=== PATIENT | female | born 1940 | race Caucasian/White ===

== ENCOUNTER 2017-01-06 23:34 | Emergency (ER) | payer MEDICARE, OTHER ==
[2017-01-06 23:47] VITALS: BP 171/76
[2017-01-07] MEDS ORDERED: Acetaminophen 325 MG Tab PO ONE (00:20)
--- NOTE | 2017-01-07 00:20 | EDM.PDOC ---
ED HPI GENERAL MEDICAL PROBLEM - General Chief Complaint: General Stated Complaint: chills , cough Time Seen by Provider: 01/07/17 00:10 Source of Information: Reports: Patient History Limitations: Reports: No limitations - History of Present Illness INITIAL COMMENTS - FREE TEXT/NARRATIVE: PT STATES SHE WAS SEEN AT [facility] ON SUNDAY FOR COUGH / URI. GIVEN AMOXIL AND COUGH SYRUP. SYMPTOMS BECAME WORSE AND DEVELOPED FEVER. DENIES CP, SOB, N/V/D, OR OTHER FAMILY MEMBERS WITH SAME SYMPTOMS Onset: gradual Onset Date: 01/01/17 Duration: Day(s): Location: Reports: chest Severity: mild Improves with: Reports: None Worsens with: Reports: None Associated Symptoms: Reports: cough. Denies: nausea/vomiting Treatments MERCURY CRACKING TESTER: Reports: Acetaminophen, NSAIDS - Related Data Allergies Allergy/AdvReac Type Severity Reaction Status Date / Time No Known Allergies Allergy Verified 01/06/17 23:40 Home Meds: Home Meds Amoxicillin [Amoxicillin] 500 mg PO TID 01/06/17 [History] Amylase/Lipase/Protease [Creon DR 24,000 Unit] 1 cap PO TID 01/06/17 [History] Aspirin [Halfprin] 81 mg PO BRK 01/06/17 [History] Calcium Carbonate/Vitamin D3 [Calcium 1,000 + D3 Caplet] 2 tab PO DAILY [History] Codeine/Promethazine [Phenergan with Codeine] 5 ml PO TID 01/06/17 [History] Escitalopram [Lexapro] 10 mg PO DAILY 01/06/17 [History] L.acidoph,Paracasei, B.lactis [Probiotic] 1 each PO DAILY 01/06/17 [History] Metoprolol Succinate [Toprol XL] 25 mg PO DAILY 01/06/17 [History] Multivit-Min/FA/Lycopene/Lut [Centrum Silver Tablet] 1 each PO DAILY 01/06/17 [ History] [place]-3 Fatty Acids [Fish Oil] 300 mg PO DAILY 01/06/17 [History] Vit D 3 2,000 units PO DAILY 01/06/17 [History] atorvaSTATin [Lipitor] 5 mg PO BEDTIME 01/06/17 [History] ED ROS GENERAL - Review of Systems Review Of Systems: ROS reveals no pertinent complaints other than HPI. Constitutional: Reports: no symptoms HEENT: Reports: No symptoms Respiratory: Reports: Cough, Sputum Cardiovascular: Reports: No symptoms Endocrine: Reports: no symptoms GI/Abdominal: Reports: No symptoms : Reports: no symptoms Musculoskeletal: Reports: no symptoms Skin: Reports: no symptoms Neurological: Reports: No Symptoms Psychiatric: Reports: No symptoms Hematologic/Lymphatic: Reports: no symptoms Immunologic: Reports: no symptoms ED EXAM, GENERAL - Physical Exam Exam: See Below Exam Limited By: No limitations General Appearance: alert, WD/WN, no apparent distress Nose: normal inspection, normal mucosa, no blood Throat/Mouth: Normal inspection, Normal oropharynx, No airway compromise Head: atraumatic, normocephalic Neck: normal inspection Respiratory/Chest: no respiratory distress, rhonchi, wheezing Cardiovascular: regular rate, rhythm, no murmur GI/Abdominal: normal bowel sounds, soft, non tender Extremities: normal inspection, no pedal edema Neurological: alert, oriented, normal cognition Psychiatric: normal affect, normal mood Skin Exam: Warm, Dry, Intact, Normal color, No rash Lymphatic: no adenopathy Course - Vital Signs Last Recorded V/S: Last Vital Signs Temp 103 F H 01/06/17 23:44 Pulse 68 01/06/17 23:44 Resp 24 H 01/06/17 23:44 BP 171/76 H 01/06/17 23:44 Pulse Ox 94 L 01/06/17 23:44 - Orders/Labs/Meds Orders: Active Orders 24 hr Category Date Time Status Chest 2V [CR] Stat Exams 01/06/17 23:53 Ordered CBC WITH AUTO DIFF [HEME] Stat Lab 01/06/17 00:02 Received CMP [COMPREHENSIVE METABOLIC PN,CMP] [CHEM] Stat Lab 01/06/17 00:02 Received - Radiology Interpretation Free Text/Narrative:: CXR SHOWS BILAT LOWER LOBE PNEUMONIA - Re-Assessments/Exams Free Text/Narrative Re-Assessment/Exam: 01/07/17 00:56 PT AFEBRILE, NONTOXIC APPEARING, VSS, BBS IMPROVED AFTER NEB. ROCEPHIN AND ZITHRO GIVEN. Departure - Departure Time of Disposition: 00:57 Disposition: Home, Self-Care 01 Condition: good Clinical Impression: Pneumonia Instructions: Community-Acquired Pneumonia, Adult, [id number], Fever, Adult Forms: ED Department Discharge Additional Instructions: FOLLOW UP AT [facility] IN NEXT 2-3 DAYS. RETURN TO ER SOONER IF SYMPTOMS CONTINUE - My Orders Last 24 Hours: My Active Orders 01/06/17 00:02 CBC WITH AUTO DIFF [HEME] Stat CMP [COMPREHENSIVE METABOLIC PN,CMP] [CHEM] Stat 01/06/17 23:53 Chest 2V [CR] Stat - Assessment/Plan Last 24 Hours: My Active Orders 01/06/17 00:02 CBC WITH AUTO DIFF [HEME] Stat CMP [COMPREHENSIVE METABOLIC PN,CMP] [CHEM] Stat 01/06/17 23:53 Chest 2V [CR] Stat Assessment:: PNEUMONIA Plan: F/U AT CLINIC IN 2 DAYS
[2017-01-07] MEDS ORDERED: Albuterol/Ipratropium 3.0-0.5 MG/3 ML Neb Soln NEB ONE (00:21)
[2017-01-07 00:31] LABS: CHLORIDE,CL 99 mmol/L (98-115); SODIUM,NA 136 mmol/L (136-145)
[2017-01-07] MEDS ORDERED: Azithromycin 250 MG Tab PO ONE ×2 (00:38→00:54)
[2017-01-07] MEDS ORDERED: cefTRIAXone 1 GM Vial IM ONE (00:38)
[2017-01-07] MEDS ORDERED: Albuterol 8 GM Inhaler INH ONE (00:54)
== END 2017-01-07 01:35 | disposition home or self-care (01) ==
LOC: KA.ED 23:34
DX: J18.9 Pneumonia, unspecified organism (principal); Z79.899 Other long term (current) drug therapy
CPT/HCPCS: 36415; 71020; 80053; 85025; 94640; 96372; 99284; A9270; J0696

== ENCOUNTER 2018-02-13 08:56 | Day surgery (SDC) | payer MEDICARE, OTHER ==
[~2018-02-13 08:56] MED LIST: Lactated Ringers 1,000 ML IV SCH; Lidocaine 0.5% 50 ML SDV ONE; Midazolam 1 MG/ML 2 ML SDV ONE; Propofol 200 MG/20 ML SDV ONE; Sodium Chloride 0.9% 5 ML Syringe FLUSH PRN; ceFAZolin 1 GM Vial ONE; fentaNYL 100 MCG/2 ML SDV ONE
[2018-02-13] MEDS ORDERED: Bupivacaine 0.5% 30 ML SDV ONE (09:38)
[2018-02-13] MEDS ORDERED: Lidocaine 1% 20 ML MDV ONE (10:06)
[2018-02-13] MEDS ORDERED: Midazolam 1 MG/ML 2 ML SDV IV ONE (10:30)
[2018-02-13] MEDS ORDERED: Propofol 200 MG/20 ML SDV IV ONE (10:30)
[2018-02-13] MEDS ORDERED: ceFAZolin 1 GM Vial IV ONE (10:30)
[2018-02-13] MEDS ORDERED: fentaNYL 100 MCG/2 ML SDV IV ONE (10:30)
[2018-02-13] MEDS ORDERED: Lidocaine 1% 10 ML MDV INFILT ONE (11:06)
--- NOTE | 2018-02-13 11:28 | PCM.OPNOTE ---
- General Post-Op/Procedure Note Date of Surgery/Procedure: 02/13/18 Operative Procedure(s): Left middle finger trigger finger release. Findings: Moderate severe trigger finger involving the left middle finger. Pre Op Diagnosis: Trigger finger left middle finger. Post-Op Diagnosis: As above. Anesthesia Technique: Regional Block Primary Surgeon: Rosa Antoine Condition: Good Free Text/Narrative:: Preoperative diagnosis: Trigger finger left middle finger Postoperative diagnosis: As above Procedure performed: Release of trigger finger left middle finger Informed consent was obtained from the patient regarding this procedure. All possible complications were thoroughly discussed. The patient decided to proceed. Anesthesia was Rein block. This was explained by the mason liner. The patient was taken to the operating room and kept in the supine position. The left upper stomach a was exsanguinated and a tourniquet was applied at the upper arm. The [place] block anesthetic was administered by the mason liner. The left hand was completely draped in the usual fashion. A horizontal incision was made on the ventral aspect of the left hand opposite the A1 guadalupe. Subcutaneous dissection was performed in the midline until we came down upon the tendon sheath which was incised proximally and distally. We then exercised the finger through full range of motion and I was unable to reproduce the "locking". The wound was irrigated and closed with 4-0 nylon sutures. A sterile pressure dressing was applied. The patient tolerated the procedure well. There were no operative complications. There was no bleeding. She was sent to the recovery room in an excellent condition. Follow-up in the clinic in 10 days.
[2018-02-13] MEDS ORDERED: Ketorolac 30 MG/ML SDV IVPUSH PRN (12:49)
[2018-02-13] MEDS ORDERED: Pantoprazole 40 MG Vial IVPUSH ONE (12:50)
[2018-02-13 13:14] VITALS: BP 132/64
== END 2018-02-13 13:05 | disposition home or self-care (01) ==
LOC: KA.SDS 08:56
PROVIDERS: ATTEND Family Medicine
DX: M65.332 Trigger finger, left middle finger (principal); I10 Essential (primary) hypertension; E78.00 Pure hypercholesterolemia, unspecified; K21.0 Gastro-esophageal reflux disease with esophagitis; F32.9 Major depressive disorder, single episode, unspecified; Z79.899 Other long term (current) drug therapy; Z88.1 Allergy status to other antibiotic agents
CPT/HCPCS: A9270-GY; J0690; J2250; J2704; J3010; J7120

== ENCOUNTER 2020-11-05 18:52 | Emergency (ER) | payer MEDICARE, OTHER ==
[2020-11-05] MEDS: Sodium Chloride 0.9% 500 ML IV STA (19:29)
[2020-11-05] MEDS: Ondansetron 4 MG/2 ML SDV IVPUSH ONE (19:30)
[2020-11-05 20:03] VITALS: BP 98/59; PULSE 70
[2020-11-05 20:04] LABS: ANION GAP 13.7 mmol/L (5-15)
--- NOTE | 2020-11-05 20:20 | EDM.PDOC ---
ED HPI GENERAL MEDICAL PROBLEM - General Chief Complaint: General Stated Complaint: sick--after COVID vaccine Time Seen by Provider: 11/05/20 19:10 Source of Information: Reports: Patient, Family () History Limitations: Reports: No Limitations - History of Present Illness INITIAL COMMENTS - FREE TEXT/NARRATIVE: 80-year-old female presents emergency room with complaints of myalgias and chills over the last 24 hours. Patient was administered her second Covid vaccination yesterday. Her symptoms started yesterday evening and continued today. She has been experiencing some nausea. She denies any vomiting. She denies any abdominal pain. She states she is not been drinking much for fluids during the last 24 hours. Onset: Sudden Onset Date: 11/04/20 Duration: Hour(s):, Constant Location: Reports: Generalized Quality: Reports: Ache Severity: Moderate Improves with: Reports: None Worsens with: Reports: None Context: Reports: Other (Covid vaccination second injection yesterday) Treatments SQL ARCHITECT: Reports: Acetaminophen, Heat Therapy - Related Data Allergies Allergy/AdvReac Type Severity Reaction Status Date / Time azithromycin [From Zithromax] Allergy Rash Verified 11/05/20 19:03 Home Meds: Home Meds Amylase/Lipase/Protease [Creon DR 24,000 Unit] 1 cap PO TID 01/06/17 [History] Calcium Carbonate/Vitamin D3 [Calcium 1,000 + D3 Caplet] 2 tab PO DAILY 01/06/17 [History] Escitalopram [Lexapro] 10 mg PO DAILY 01/06/17 [History] L.acidoph,Paracasei, B.lactis [Probiotic] 1 each PO DAILY 01/06/17 [History] Metoprolol Succinate [Toprol XL] 25 mg PO DAILY 01/06/17 [History] Multivit-Min/FA/Lycopen/Lutein [Centrum Silver Tablet] 3 tab PO DAILY 01/06/17 [History] [place]-3 Fatty Acids [Fish Oil] 1 cap PO TID 01/06/17 [History] Vit D 3 2,000 units PO DAILY 01/06/17 [History] Famotidine 20 mg PO DAILY 11/05/20 [History] methIMAzole [Methimazole] 5 mg PO DAILY 11/05/20 [History] Past Medical History Cardiovascular History: Reports: High Cholesterol, Hypertension Respiratory History: Reports: Bronchitis, Recurrent, Pneumonia, Recurrent Gastrointestinal History: Reports: GERD Genitourinary History: Reports: UTI, Recurrent CURATOR OF EDUCATION History: Reports: Other Musculoskeletal History: Trigger finger of left middle finger Neurological History: Reports: Vertigo Psychiatric History: Reports: Depression Endocrine/Metabolic History: Reports: None Hematologic History: Reports: Blood Transfusion(s) Oncologic (Cancer) History: Reports: None Dermatologic History: Reports: None - Infectious Disease History Infectious Disease History: Reports: Chicken Pox, Measles, Mumps, Scarlet Fever - Past Surgical History Cardiovascular Surgical History: Reports: None Respiratory Surgical History: Reports: None GI Surgical History: Reports: None Female Surgical History: Reports: Hysterectomy Endocrine Surgical History: Reports: None Neurological Surgical History: Reports: None Musculoskeletal Surgical History: Reports: None Oncologic Surgical History: Reports: None Dermatological Surgical History: Reports: None Social & Family History - Family History Family Medical History: No Pertinent Family History - Tobacco Use Tobacco Use Status *Q: Never Tobacco User - Caffeine Use Caffeine Use: Reports: Coffee - Recreational Drug Use Recreational Drug Use: No ED ROS GENERAL - Review of Systems Review Of Systems: See Below Constitutional: Reports: Chills, Malaise, Weakness. Denies: Diaphoresis HEENT: Reports: No Symptoms Respiratory: Reports: No Symptoms Cardiovascular: Reports: No Symptoms Endocrine: Reports: Fatigue GI/Abdominal: Reports: Nausea. Denies: Abdominal Pain, Diarrhea, Vomiting : Reports: No Symptoms Musculoskeletal: Reports: Muscle Pain Skin: Reports: No Symptoms Neurological: Reports: No Symptoms ED EXAM, GENERAL - Physical Exam Exam: See Below Exam Limited By: No Limitations General Appearance: Alert, WD/WN, No Apparent Distress Eye Exam: Bilateral Eye: EOMI Ears: Hearing Grossly Normal, Normal TMs Nose: Normal Inspection, Normal Mucosa Throat/Mouth: Normal Inspection, Normal Lips, Normal Oropharynx, Normal Voice, No Airway Compromise Head: Atraumatic, Normocephalic Neck: Normal Inspection, Supple, Non-Tender, Full Range of Motion Respiratory/Chest: No Respiratory Distress, Lungs Clear, Normal Breath Sounds, No Accessory Muscle Use, Chest Non-Tender Cardiovascular: Normal Peripheral Pulses, Regular Rate, Rhythm, No Edema, No JVD GI/Abdominal: Normal Bowel Sounds, Soft, Non-Tender Back Exam: Normal Inspection, Full Range of Motion Extremities: Normal Inspection, Normal Range of Motion, Non-Tender, No Pedal Edema Neurological: Alert, Oriented, Normal Cognition, No Motor/Sensory Deficits Psychiatric: Normal Affect, Normal Mood Skin Exam: Warm, Dry, Intact, Normal Color, No Rash Lymphatic: No Adenopathy #1 Interpretation EKG Date: 11/05/20 Time: 20:27 Rhythm: NSR Rate (Beats/Min): 68 [place]: Normal P-Wave: Present QRS: RBBB ST-T: Normal QT: Normal Comparison: NA - No Prior EKG EKG Interpretation Comments: Normal sinus rhythm, right bundle branch block Course - Vital Signs Last Recorded V/S: Last Vital Signs Temp 99.2 F 11/05/20 19:30 Pulse 70 11/05/20 20:02 Resp 16 11/05/20 20:02 BP 98/59 L 11/05/20 20:02 Pulse Ox 97 11/05/20 20:02 - Orders/Labs/Meds Orders: Active Orders 24 hr Category Date Time Status EKG Documentation Completion [RC] ASDIRECTED Care 11/05/20 19:49 Active Sodium Chloride 0.9% [Normal Saline] 500 ml Med 11/05/20 19:17 Active IV NOW EKG 12 Lead [EK] Stat Ther 11/05/20 19:48 Ordered Medication Orders Sodium Chloride (Normal Saline) 500 mls @ 500 mls/hr IV NOW STA Stop: 11/05/20 20:16 Last Admin: 11/05/20 19:29 Dose: 500 mls/hr Documented by: DEANGELO Labs: Laboratory Tests 11/05/20 11/05/20 Range/Units 19:20 19:20 WBC 7.36 (5.00-10.00) 10^3/uL RBC 4.18 (3.80-5.50) 10^6/uL Hgb 12.4 (12.0-16.0) g/dL Hct 36.4 L (37.0-47.0) % MCV 87.1 (82.0-92.0) fL MCH 29.7 (27.0-31.0) pg MCHC 34.1 (32.0-36.0) g/dL RDW 13.1 (11.5-14.5) % Plt Count 119 L (150-400) 10^3/uL MPV 10.5 H (7.4-10.4) fL Immature Gran % (Auto) 0.1 (0.0-5.0) % Neut % (Auto) 73.1 H (50.0-70.0) % Lymph % (Auto) 22.1 (20.0-40.0) % Bryan % (Auto) 3.7 (2.0-8.0) % Eos % (Auto) 0.7 L (1.0-3.0) % Baso % (Auto) 0.3 (0.0-1.0) % Neut # (Auto) 5.38 (2.50-7.00) 10^3/uL Lymph # (Auto) 1.63 (1.00-4.00) 10^3/uL Bryan # (Auto) 0.27 (0.10-0.80) 10^3/uL Eos # (Auto) 0.05 L (0.10-0.30) 10^3/uL Baso # (Auto) 0.02 (0.00-0.10) 10^3/uL Immature Gran # (Auto) 0.01 (0.00-0.50) 10^3/uL Sodium 131 L (136-145) mmol/L Potassium 3.5 (3.5-5.1) mmol/L Chloride 95 L (98-107) mmol/L Carbon Dioxide 25.8 (21.0-32.0) mmol/L Anion Gap 13.7 (5-15) mmol/L BUN 13 (7-18) mg/dL Creatinine 0.92 (0.51-1.17) mg/dL Est Cr Clr Drug Dosing 36.19 mL/min Estimated GFR (MDRD) 59 mL/min Glucose 123 (70-140) mg/dL Calcium 8.6 L (8.7-10.3) mg/dL Meds: Medications Generic Name Dose Route Start Last Admin Trade Name Freq PRN Reason Stop Dose Admin Sodium Chloride 500 mls @ 500 mls/hr 11/05/20 19:17 11/05/20 19:29 Normal Saline IV 11/05/20 20:16 500 mls/hr NOW STA Administration Discontinued Medications Generic Name Dose Route Start Last Admin Trade Name Freq PRN Reason Stop Dose Admin Ondansetron HCl 4 mg 11/05/20 19:21 11/05/20 19:30 Zofran IVPUSH 11/05/20 19:22 4 mg ONETIME ONE Administration - Re-Assessments/Exams Free Text/Narrative Re-Assessment/Exam: 11/05/20 20:20 Patient feels better with fluids and warm blankets. Zofran 4mg was given for nausea. Departure - Departure Time of Disposition: 20:33 Disposition: Home, Self-Care 01 Condition: Good Clinical Impression: COVID-19 vaccine administered, Chills without fever, Myalgia after COVID-19 vaccination - Discharge Information Referrals: Paddy Rosenbaum NP [Primary Care Provider] - Sepsis Event Note (ED) - Evaluation Sepsis Screening Result: No Definite Risk - Focused Exam Vital Signs: Vital Signs Temp Pulse Resp BP Pulse Ox 11/05/20 20:02 70 16 98/59 L 97 11/05/20 19:30 99.2 F 71 16 112/53 L 99 11/05/20 19:03 99.0 F 70 16 119/50 L 98 - My Orders Last 24 Hours: My Active Orders 11/05/20 19:17 Sodium Chloride 0.9% [Normal Saline] 500 ml IV NOW 11/05/20 19:48 EKG 12 Lead [EK] Stat 11/05/20 19:49 EKG Documentation Completion [RC] ASDIRECTED - Assessment/Plan Last 24 Hours: My Active Orders 11/05/20 19:17 Sodium Chloride 0.9% [Normal Saline] 500 ml IV NOW 11/05/20 19:48 EKG 12 Lead [EK] Stat 11/05/20 19:49 EKG Documentation Completion [RC] ASDIRECTED Assessment:: 1. COVID-19 vaccination second dose administered 2. Chills without fever 3. Myalgias secondary to COVID-19 vaccination Plan: 1. Supportive therapy to be continued, administered, warm blankets, warm fluids, warm baths, rest 2. Continue with oral hydration 3. Tylenol as needed for discomfort 4. Zofran 4 mg ODT as needed for nausea every 6 hours. 5. Follow-up with your primary care next week if symptoms are not resolved over the next 48 hours.
[2020-11-05] MEDS: Ondansetron 4 MG Tab.DIS PO ONE (20:40)
[2020-11-05] MEDS: Ondansetron 4 MG Tab.DIS ONE (21:28)
== END 2020-11-05 20:55 | disposition home or self-care (01) ==
LOC: KA.ED 18:52
DX: M79.10 Myalgia, unspecified site (principal); R68.83 Chills (without fever); I10 Essential (primary) hypertension; T50.B95A Adverse effect of other viral vaccines, initial encounter; K21.9 Gastro-esophageal reflux disease without esophagitis; Z88.1 Allergy status to other antibiotic agents; Z79.899 Other long term (current) drug therapy
CPT/HCPCS: 80048; 85025; 93005; 96374; 99283-25; 99284; A9270-GY; J2405; J7040

== ENCOUNTER 2022-02-11 21:36 | Emergency (ER) | payer MEDICARE, OTHER ==
[2022-02-11 21:43] VITALS: BP 154/70
[2022-02-11] MEDS ORDERED: Albuterol/Ipratropium 3.0-0.5 MG/3 ML Neb Soln NEB ONE (22:05)
[2022-02-11] MEDS ORDERED: Albuterol/Ipratropium 3.0-0.5 MG/3 ML Neb Soln ONE (22:08)
[2022-02-11 22:53] LABS: ANION GAP 12.4 mmol/L (5-15)
[2022-02-11] MEDS ORDERED: Codeine/guaiFENesin 10-100 MG/5 ML Syrup 5 ML Cup PO ONE (23:12)
[2022-02-11] MEDS ORDERED: Albuterol 8 GM Inhaler INH SCH (23:15)
[2022-02-12 00:54] VITALS: PULSE 66
== END 2022-02-11 23:45 | disposition home or self-care (01) ==
LOC: KA.ED 21:36
DX: C91.10 Chronic lymphocytic leukemia of B-cell type not having achieved remission (principal); J18.9 Pneumonia, unspecified organism; J40 Bronchitis, not specified as acute or chronic; E78.00 Pure hypercholesterolemia, unspecified; I10 Essential (primary) hypertension; K21.9 Gastro-esophageal reflux disease without esophagitis; Z79.899 Other long term (current) drug therapy; Z88.1 Allergy status to other antibiotic agents
CPT/HCPCS: 36415; 71046; 80053; 83605; 85025; 94640; 99284; 99285-25; A9270-GY; J7620-GY

== ENCOUNTER 2022-03-17 13:20 | Emergency (ER) | payer MEDICARE, OTHER ==
[2022-03-17 13:34] VITALS: BP 140/59; PULSE 60
== END 2022-03-17 13:40 | disposition home or self-care (01) ==
LOC: KA.ED 13:20
DX: U07.1 COVID-19 (principal); I10 Essential (primary) hypertension; K21.9 Gastro-esophageal reflux disease without esophagitis; E78.00 Pure hypercholesterolemia, unspecified; Z79.899 Other long term (current) drug therapy
CPT/HCPCS: 99283

== ENCOUNTER 2023-01-13 10:48 | Emergency (ER) | payer MEDICARE, OTHER ==
[2023-01-13 11:08] VITALS: BP 129/66; PULSE 70
[2023-01-13 11:40] LABS: HEMATOCRIT 36.7 % (37.0-47.0); HEMOGLOBIN 12.2 g/dL (12.0-16.0); MEAN CORPUSCULAR HEMOGLOBIN 29.5 pg (27.0-31.0); MEAN CORPUSCULAR HGB CONC 33.2 g/dL (32.0-36.0); MEAN CORPUSCULAR VOLUME 88.9 fL (82.0-92.0); MEAN PLATELET VOLUME 10.2 fL (7.4-10.4); PLATELET COUNT,PLT 163 10^3/uL (150-400); RED BLOOD CELL COUNT 4.13 10^6/uL (3.80-5.50); RED CELL DISTRIBUTION WIDTH 13.6 % (11.5-14.5)
[2023-01-13 11:52] LABS: WHITE BLOOD CELL COUNT,WBC 34.08 10^3/uL (5.00-10.00)
[2023-01-13 11:53] LABS: SLIDE REVIEW YES
[2023-01-13 11:56] LABS: BAND PERCENT MAN 1 % (4-12); LYMPHOCYTES PERCENT MAN 73 % (20-40); SEG NEUTROPHILS PERCENT MAN 20 % (50-70)
[2023-01-13 11:57] LABS: BASOPHILS PERCENT MAN 0 % (0-1); EOSINOPHILS PERCENT MAN 0 % (1-3); MONOCYTES PERCENT MAN 6 % (2-8)
[2023-01-13 11:58] LABS: ANION GAP 10.9 mmol/L (5-15); CALCIUM 8.3 mg/dL (8.7-10.3); CARBON DIOXIDE,CO2 26.2 mmol/L (21.0-32.0); CREATININE 0.85 mg/dL (0.51-1.17); EST CRCL DRUG DOSING (CG) 37.84 mL/min; POTASSIUM,K 4.1 mmol/L (3.5-5.1)
[2023-01-13 12:55] LABS: APPEARANCE,URINE CLEAR (CLEAR); BILIRUBIN,URINE NEGATIVE (NEGATIVE); COLOR,URINE YELLOW (YELLOW); GLUCOSE,URINE NEGATIVE (NEGATIVE); KETONES,URINE NEGATIVE (NEGATIVE); LEUKOCYTE ESTERASE,URINE NEGATIVE (NEGATIVE); NITRITE,URINE NEGATIVE (NEGATIVE); OCCULT BLOOD,URINE TRACE-INTACT (NEGATIVE); PROTEIN,URINE NEGATIVE (NEGATIVE); UROBILINOGEN,URINE 0.2 E.U./dL (0.2-1.0)
[2023-01-13 13:01] LABS: BACTERIA,URINE OCCASIONAL /HPF (NONE TO FEW); EPITHELIAL CELLS,URINE OCCASIONAL /LPF; RBC,URINE 0-5 /HPF (0-5); WBC,URINE 0-5 /HPF (0-5)
== END 2023-01-13 13:25 | disposition home or self-care (01) ==
LOC: KA.ED 10:48
DX: C91.10 Chronic lymphocytic leukemia of B-cell type not having achieved remission (principal); K59.01 Slow transit constipation; E78.00 Pure hypercholesterolemia, unspecified; I10 Essential (primary) hypertension; K21.9 Gastro-esophageal reflux disease without esophagitis; Z88.1 Allergy status to other antibiotic agents; Z98.890 Other specified postprocedural states; Z79.899 Other long term (current) drug therapy
CPT/HCPCS: 36415; 74021; 80048; 81001; 85025; 99284

== ENCOUNTER 2023-08-04 06:26 | Emergency (ER) | payer MEDICARE, OTHER ==
[2023-08-04 06:38] VITALS: BP 125/41; PULSE 68
[2023-08-04 07:17] LABS: APPEARANCE,URINE CLOUDY (CLEAR); BILIRUBIN,URINE NEGATIVE (NEGATIVE); COLOR,URINE YELLOW (YELLOW); GLUCOSE,URINE NEGATIVE (NEGATIVE); KETONES,URINE NEGATIVE (NEGATIVE); LEUKOCYTE ESTERASE,URINE LARGE (NEGATIVE); NITRITE,URINE NEGATIVE (NEGATIVE); OCCULT BLOOD,URINE LARGE (NEGATIVE); PH,URINE 5.5 (5.0-9.0); PROTEIN,URINE >=300 mg/dL (NEGATIVE); UROBILINOGEN,URINE 0.2 E.U./dL (0.2-1.0)
[2023-08-04 07:22] LABS: BACTERIA,URINE FEW /HPF (NONE TO FEW); EPITHELIAL CELLS,URINE RARE /LPF; RBC,URINE >100 /HPF (0-5); WBC,URINE 20-30 /HPF (0-5)
[2023-08-04] MEDS ORDERED: Sulfamethoxazole/Trimethoprim 800-160 MG Tab PO ONE (07:29)
== END 2023-08-04 07:50 | disposition home or self-care (01) ==
LOC: KA.ED 06:26
DX: N39.0 Urinary tract infection, site not specified (principal); I10 Essential (primary) hypertension; E78.00 Pure hypercholesterolemia, unspecified; K21.9 Gastro-esophageal reflux disease without esophagitis; Z79.899 Other long term (current) drug therapy; Z88.1 Allergy status to other antibiotic agents; Z86.16 Personal history of COVID-19; Z90.49 Acquired absence of other specified parts of digestive tract
CPT/HCPCS: 81001; 87086; 87088; 99283; A9270-GY